=== PATIENT | male | born 1935 | race Caucasian/White ===

== ENCOUNTER 2019-06-27 14:26 | Emergency (ER) | payer MEDICARE, BC ==
--- NOTE | 2019-06-27 15:14 | EDM.PDOC ---
ED HPI GENERAL MEDICAL PROBLEM - General Chief Complaint: Respiratory Problem Stated Complaint: DIFFICULTY BREATHING AND COUGH Time Seen by Provider: 06/27/19 15:11 Source of Information: Reports: Patient, RN Notes Reviewed History Limitations: Reports: No Limitations - History of Present Illness INITIAL COMMENTS - FREE TEXT/NARRATIVE: Patient is an 83-year-old male who presents to the ED for evaluation of difficulty breathing and a cough. Patient notes that over the last 5 days, he has been feeling as if it is harder for him to catch his breath. He states walking short distances winds him, and this is not normally the case. He states that it is a little bit harder to lay flat as well. Patient states that he is getting smaller than a quarter size amount of white/yellowish phlegm up at times. He states he used to be a smoker, but has no formal diagnosis of COPD or asthma. He does have some hypertension but no other heart issues. Patient is not complaining of any other sick-like symptoms, fever/chills, nausea /vomiting/diarrhea. Patient's not had any change in medications, and his primary care is Dr. Sagastume. Patient states that the Mucinex does seem to help a little bit with the symptoms. Patient states that he did travel to [place], [place] via car with another gentleman, and did return back within the last 14 days, but states no one was sick at that time, and they did not go to any concerts but did attend a wedding ceremony with a large number of people. Patient is denying any fever, body aches, or otherwise. He is complaining only of the dyspnea. Patient does live in assisted living type setting. Patient has mildly low O2 sats, 93% on room air, patient does not require oxygen at home. - Related Data Allergies Allergy/AdvReac Type Severity Reaction Status Date / Time No Known Allergies Allergy Verified 06/27/19 14:43 Home Meds: Home Meds Cetirizine HCl [Zyrtec] 10 mg PO PRN 09/10/13 [History] Losartan [Cozaar] 50 mg PO DAILY 09/10/13 [History] Terazosin HCl [Terazosin] 5 mg PO DAILY 09/10/13 [History] allopurinoL [Allopurinol] 100 mg PO DAILY 09/10/13 [History] Aspirin [[place] Aspirin] 81 mg PO DAILY 09/11/13 [History] Albuterol Sulfate [Proair Hfa] 8.5 gm IH TID #1 [email or web address] 06/27/19 [Rx] Past Medical History Cardiovascular History: Reports: Hypertension Social & Family History - Tobacco Use Smoking Status *Q: Former Smoker ED ROS GENERAL - Review of Systems Review Of Systems: See Below Constitutional: Denies: Fever, Chills, Malaise, Decreased Appetite Respiratory: Reports: Shortness of Breath, Wheezing, Cough, Sputum Cardiovascular: Reports: Dyspnea on Exertion, Orthopnea. Denies: Chest Pain, Blood Pressure Problem, Edema, Lightheadedness GI/Abdominal: Denies: Abdominal Pain, Constipation, Diarrhea, Nausea, Vomiting ED EXAM, GENERAL - Physical Exam Exam: See Below Exam Limited By: No Limitations General Appearance: Alert, WD/WN, No Apparent Distress Eye Exam: Bilateral Eye: EOMI, Normal Inspection, PERRL Ears: Normal External Exam Nose: Normal Inspection Throat/Mouth: Normal Inspection, Normal Lips, Normal Teeth, Normal Gums, Normal Oropharynx, Normal Voice, No Airway Compromise Head: Atraumatic, Normocephalic Neck: Normal Inspection Respiratory/Chest: No Respiratory Distress, No Accessory Muscle Use, Chest Non- Tender, Decreased Breath Sounds (diffuse bilaterally), Wheezing (diffuse bilaterally, end expiratory) Cardiovascular: Normal Peripheral Pulses, Regular Rate, Rhythm, No Edema, No Murmur Peripheral Pulses: 3+: Radial (L), Radial (R) GI/Abdominal: Normal Bowel Sounds, Soft, Non-Tender, No Distention, No Mass Extremities: Normal Inspection, Normal Capillary Refill Neurological: Alert, Oriented, Normal Cognition, No Motor/Sensory Deficits Psychiatric: Normal Affect, Normal Mood Skin Exam: Warm, Dry, Intact, Normal Color, No Rash EKG INTERPRETATION EKG Date: 06/27/19 Time: 15:52 Rhythm: NSR Rate (Beats/Min): 73 [place]: Normal P-Wave: Present QRS: Normal ST-T: Normal QT: Normal EKG Interpretation Comments: No acute ischemic change. Reviewed by myself and Dr. Bartlett. Essentially normal ECG. Course - Vital Signs Last Recorded V/S: Last Vital Signs Temp 97.3 F 06/27/19 14:41 Pulse 90 06/27/19 14:41 Resp 16 06/27/19 14:41 BP 171/84 H 06/27/19 14:41 Pulse Ox 98 06/27/19 15:48 - Orders/Labs/Meds Orders: Active Orders 24 hr Category Date Time Status EKG Documentation Completion [RC] STAT Care 06/27/19 15:35 Ordered RT Aerosol Therapy [RC] ASDIRECTED Care 06/27/19 15:36 Ordered Chest 2V [CR] Stat Exams 06/27/19 15:12 Ordered CORONAVIRUS (COVID-19) PCR [MREF] Stat Lab 06/27/19 15:45 Ordered Labs: Laboratory Tests 06/27/19 06/27/19 06/27/19 Range/Units 15:41 15:41 15:41 WBC 7.24 (4.23-9.07) K/mm3 RBC 4.47 L (4.63-6.08) M/mm3 Hgb 14.0 (13.7-17.5) gm/dl Hct 42.8 (40.1-51.0) % MCV 95.7 H (79.0-92.2) fl MCH 31.3 (25.7-32.2) pg MCHC 32.7 (32.2-35.5) g/dl RDW Std Deviation 48.2 H (35.1-43.9) fL Plt Count 172 (163-337) K/mm3 MPV 11.1 (9.4-12.3) fl Neutrophils % (Manual) 72 H (40-60) % Band Neutrophils % 0 (0-10) % Lymphocytes % (Manual) 12 L (20-40) % Atypical Lymphs % 0 % Monocytes % (Manual) 7 (2-10) % Eosinophils % (Manual) 7 (0.8-7.0) % Basophils % (Manual) 2 H (0.2-1.2) Platelet Estimate Adequate RBC Morph Comment Normal Sodium 142 (136-145) mEq/L Potassium 4.3 (3.5-5.1) mEq/L Chloride 106 (98-107) mEq/L Carbon Dioxide 26 (21-32) mEq/L Anion Gap 14.3 (5-15) BUN 15 (7-18) mg/dL Creatinine 1.1 (0.7-1.3) mg/dL Est Cr Clr Drug Dosing TNP Estimated GFR (MDRD) > 60 (>60) mL/min BUN/Creatinine Ratio 13.6 L (14-18) Glucose 97 (83-115) mg/dL Calcium 8.4 L (8.5-10.1) mg/dL Total Bilirubin 0.6 (0.2-1.0) mg/dL AST 26 (15-37) U/L ALT 24 (16-63) U/L Alkaline Phosphatase 74 (46-116) U/L Troponin I < 0.017 (0.00-0.056) ng/mL NT-Pro-B Natriuret Pep (0-450) pg/mL Total Protein 6.6 (6.4-8.2) g/dl Albumin 3.6 (3.4-5.0) g/dl Globulin 3.0 gm/dL Albumin/Globulin Ratio 1.2 (1-2) 06/27/19 Range/Units 15:41 WBC (4.23-9.07) K/mm3 RBC (4.63-6.08) M/mm3 Hgb (13.7-17.5) gm/dl Hct (40.1-51.0) % MCV (79.0-92.2) fl MCH (25.7-32.2) pg MCHC (32.2-35.5) g/dl RDW Std Deviation (35.1-43.9) fL Plt Count (163-337) K/mm3 MPV (9.4-12.3) fl Neutrophils % (Manual) (40-60) % Band Neutrophils % (0-10) % Lymphocytes % (Manual) (20-40) % Atypical Lymphs % % Monocytes % (Manual) (2-10) % Eosinophils % (Manual) (0.8-7.0) % Basophils % (Manual) (0.2-1.2) Platelet Estimate RBC Morph Comment Sodium (136-145) mEq/L Potassium (3.5-5.1) mEq/L Chloride (98-107) mEq/L Carbon Dioxide (21-32) mEq/L Anion Gap (5-15) BUN (7-18) mg/dL Creatinine (0.7-1.3) mg/dL Est Cr Clr Drug Dosing Estimated GFR (MDRD) (>60) mL/min BUN/Creatinine Ratio (14-18) Glucose (83-115) mg/dL Calcium (8.5-10.1) mg/dL Total Bilirubin (0.2-1.0) mg/dL AST (15-37) U/L ALT (16-63) U/L Alkaline Phosphatase (46-116) U/L Troponin I (0.00-0.056) ng/mL NT-Pro-B Natriuret Pep 130 (0-450) pg/mL Total Protein (6.4-8.2) g/dl Albumin (3.4-5.0) g/dl Globulin gm/dL Albumin/Globulin Ratio (1-2) Meds: Medications Discontinued Medications Generic Name Dose Route Start Last Admin Trade Name Freq PRN Reason Stop Dose Admin Albuterol 2.5 mg 06/27/19 15:35 06/27/19 15:48 Proventil Neb Soln NEB 06/27/19 15:36 2.5 mg ONETIME ONE Administration - Re-Assessments/Exams Free Text/Narrative Re-Assessment/Exam: 06/27/19 15:42 Patient presents to the ED for his increasing dyspnea on exertion. Did order chest x-ray, CBC, CMP, troponin, and BNP for further evaluation along with a EKG and an albuterol nebulizer for further management and evaluation. The patient's provider, Dr. Amin did phone the ER, and was requesting that the patient be tested for coronavirus as he lives in an assisted living type facility and they would like to know for sure if he is infected or not so he is not spreading it around the facility. I will provide testing at this time. 06/27/19 16:46 Patient's laboratory evaluation, and chest x-ray are unremarkable. Influenza is negative. COVID-19 testing is pending. Patient will be sent home with an albuterol inhaler with spacer. He will be taught on how to use the inhaler with a spacer. He did report good symptomatic control with the albuterol nebulizer. Departure - Departure Time of Disposition: 16:47 Disposition: Home, Self-Care 01 Condition: Fair Clinical Impression: SOB (shortness of breath) on exertion, Wheezing - Discharge Information *PRESCRIPTION DRUG MONITORING PROGRAM REVIEWED*: No *COPY OF PRESCRIPTION DRUG MONITORING REPORT IN PATIENT JUSTIN: No Prescriptions: Albuterol Sulfate [Proair Hfa] 8.5 gm IH TID #1 [email or web address] Instructions: How to Use a Metered Dose Inhaler Referrals: Keron Amin MD [Primary Care Provider] - Forms: ED Department Discharge Additional Instructions: You were evaluated in the ER today regarding your general symptoms. Your laboratory evaluation was unremarkable at today's visit, your chest x-ray was also within normal limits. You were tested for the coronavirus at today's visit. This will take a few days, to result. You will be called and made notified of positive or negative results. In the meantime, strongly recommend that you quarantine yourself from others, even more so that you live in an assisted living type facility. Please stay in your room as much as possible to help contain the spread of the disease. You are presumed positive until proven negative. You were given an albuterol inhaler for your cough/dyspnea on exertion. Please take 2 puffs 3 times a day for the next few days, you were provided with a spacer, and an educational handout on how to use the spacer with the inhaler. Please use a spacer as it does provide a way for the medication to get into your lungs as intended. Please return to the ER at any time if symptoms should change or worsen. Sepsis Event Note - Evaluation Sepsis Screening Result: No Definite Risk - Focused Exam Vital Signs: Vital Signs Temp Pulse Resp BP Pulse Ox Pulse Ox 06/27/19 15:48 98 06/27/19 14:41 97.3 F 90 16 171/84 H 93 L Date Exam was Performed: 06/27/19 Time Exam was Performed: 16:46 - My Orders Last 24 Hours: My Active Orders 06/27/19 15:12 Chest 2V [CR] Stat 06/27/19 15:35 EKG Documentation Completion [RC] STAT 06/27/19 15:36 RT Aerosol Therapy [RC] ASDIRECTED 06/27/19 15:45 CORONAVIRUS (COVID-19) PCR [MREF] Stat - Assessment/Plan Last 24 Hours: My Active Orders 06/27/19 15:12 Chest 2V [CR] Stat 06/27/19 15:35 EKG Documentation Completion [RC] STAT 06/27/19 15:36 RT Aerosol Therapy [RC] ASDIRECTED 06/27/19 15:45 CORONAVIRUS (COVID-19) PCR [MREF] Stat
[2019-06-27] MEDS ORDERED: Albuterol 0.083% 2.5 MG/3 ML Neb Soln NEB ONE (15:35)
--- NOTE | 2019-06-29 07:37 | CR ---
Chest: 2 views of the chest were obtained. Comparison: Prior chest x-ray of 09/11/13. Heart size is normal. Tortuous thoracic aorta is noted. Lungs are clear with no acute parenchymal change. Mild degenerative change is scattered within the spine. No acute osseous finding is seen. Impression: 1. Nothing acute is seen on 2 view chest x-ray. Diagnostic code #2 This report was dictated in MDT
== END 2019-06-27 17:00 | disposition home or self-care (01) ==
LOC: JD.ED 14:26
DX: R06.02 Shortness of breath (principal); R06.2 Wheezing; I10 Essential (primary) hypertension; Z87.891 Personal history of nicotine dependence; Z79.82 Long term (current) use of aspirin; Z79.899 Other long term (current) drug therapy
CPT/HCPCS: 36415; 71046; 80053; 83880; 84484; 85007; 85027; 87804; 93005; 94640; 99285; U0001; 93010; 99283

== ENCOUNTER 2021-10-14 00:50 | Emergency (ER) | payer MEDICARE, BC ==
[2021-10-14] MEDS ORDERED: Sodium Chloride 0.9% 1,000 ML IV SCH (03:15)
[2021-10-14] MEDS ORDERED: Famotidine 20 MG Tab PO STA (05:11)
== END 2021-10-14 05:25 | disposition home or self-care (01) ==
LOC: JD.ED 00:50
DX: K21.9 Gastro-esophageal reflux disease without esophagitis (principal); T17.900A Unspecified foreign body in respiratory tract, part unspecified causing asphyxiation, initial encounter; E78.00 Pure hypercholesterolemia, unspecified; I10 Essential (primary) hypertension; M10.9 Gout, unspecified; E03.9 Hypothyroidism, unspecified; Z79.899 Other long term (current) drug therapy; Z20.822 Contact with and (suspected) exposure to COVID-19; Z79.82 Long term (current) use of aspirin
CPT/HCPCS: 36415; 71046; 71275; 80053; 83605; 83880; 84484; 85007; 85027; 85379; 87040; 93005; 99285; A9270; J7030; U0002

== ENCOUNTER 2022-01-18 10:39 | Emergency (ER) | payer MEDICARE, BC ==
[2022-01-18] MEDS ORDERED: Oxymetazoline 0.05% Nasal Spray 30 ML Bottle NAS ONE (11:38)
== END 2022-01-18 13:00 | disposition home or self-care (01) ==
LOC: JD.ED 10:39
DX: R04.0 Epistaxis (principal); I10 Essential (primary) hypertension; Z79.899 Other long term (current) drug therapy; Z79.82 Long term (current) use of aspirin
CPT/HCPCS: 30901; 99282; A9270